=== PATIENT | male | born 2000 | race Two or more races ===

== ENCOUNTER 2024-01-31 21:03 | Emergency (ER) | payer MEDICAID ==
[~2024-01-31] VITALS: Ht 322.6 cm; Wt 65.9 kg
[2024-01-31] MEDS ORDERED: DIVA125T31 PO (21:14)
[2024-01-31] MEDS ORDERED: QUET-1 PO (21:14)
[2024-01-31] MEDS ORDERED: PROP10TA10 PO (21:14)
[2024-01-31] MEDS: LORazepam 2 mg/ml vial IM ONE (22:04)
[2024-01-31] MEDS: haloperidol lactate 5mg/ml inj IM ONE (22:05)
[2024-01-31] MEDS: diphenhydrAMINE 50 mg/ml inj IM ONE (22:05)
[2024-01-31 22:49] LABS: BASOPHILS # (AUTO) 0.2 X10'3 (0-0.2); BASOPHILS % (AUTO) 1.4 % (0-1); EOSINOPHILS # (AUTO) 0.1 X10'3 (0-0.9); EOSINOPHILS % (AUTO) 0.6 % (0-6); HEMATOCRIT 40.5 % (42.0-52.0); HEMOGLOBIN 13.7 g/dl (14.0-17.9); LYMPHOCYTES # (AUTO) 0.7 X10'3 (1.1-4.8); LYMPHOCYTES % (AUTO) 4.2 % (21-51); MEAN CORPUSCULAR HEMOGLOBIN 29.8 PG (27.0-31.0); MEAN CORPUSCULAR HGB CONC 33.7 g/dL (33.0-36.5); MEAN CORPUSCULAR VOLUME 88.2 FL (78-98); MEAN PLATELET VOLUME 8.2 FL (7.4-10.4); MONOCYTES # (AUTO) 0.9 X10'3 (0-0.9); MONOCYTES % (AUTO) 5.3 % (2-12); NEUTROPHILS # (AUTO) 14.3 X10'3 (1.8-7.7); NEUTROPHILS % (AUTO) 88.5 % (42-75); PLATELET COUNT 259 X10'3 (140-440); RED BLOOD COUNT 4.59 X10'6 (4.70-6.10); RED CELL DISTRIBUTION WIDTH 14.9 % (11.5-14.5); WHITE BLOOD COUNT 16.1 X10'3 (4.5-11.0)
[2024-01-31 22:55] LABS: ALANINE AMINOTRANSFERASE 18 U/L (12-78); ALBUMIN 4.4 G/DL (3.4-5.0); ALBUMIN/GLOBULIN RATIO 1.5 (1.1-1.5); ALKALINE PHOSPHATASE 75 IU/L (46-116); ANION GAP 13 (8-16); ASPARTATE AMINO TRANSFERASE 15 U/L (10-37); BILIRUBIN,TOTAL 0.4 MG/DL (0.1-1.0); BLOOD UREA NITROGEN 12 MG/DL (7-18); BUN/CREATININE RATIO 9.8 (10.0-20.0); CALCIUM 9.2 MG/DL (8.5-10.1); CHLORIDE 104 MMOL/L (99-107); CREATININE 1.22 MG/DL (0.60-1.10); GLUCOSE 125 MG/DL (70-104); POTASSIUM 3.5 MMOL/L (3.5-5.1); SALICYLATE 4.5 MG/DL (4.0-20.0); SODIUM 143 MMOL/L (135-145); TOTAL CARBON DIOXIDE 25.9 MMOL/L (24-32); TOTAL PROTEIN 7.4 G/DL (6.4-8.2); eCRCL 88 ML/MIN; eGFR 74 ML/MIN
[2024-01-31 22:59] LABS: ACETAMINOPHEN < 2.0 UG/ML (10-30); ETHANOL < 10 MG/DL (<10)
[2024-02-01] MEDS: divalproex sod 125mg tablet.DR PO SCH (00:53)
[2024-02-01] MEDS: quetiapine 100mg tablet PO SCH (00:54)
[2024-02-01] MEDS: propranolol 10mg tablet PO SCH (00:54)
[2024-02-01 01:03] LABS: THYROID STIMULATING HORMONE 0.65 ulU/ml (0.34-4.50); VALPROATE 6 UG/ML (50-100)
[2024-02-01 03:01] LABS: FREE T4 (FREE THYROXINE) 1.33 NG/DL (0.73-1.40)
[2024-02-01 16:35] LABS: BILIRUBIN,URINE SMALL (Neg); CLARITY,URINE CLOUDY (Clear); COLOR,URINE AMBER (Yellow); GLUCOSE, URINE NEGATIVE (Neg); KETONES,URINE NEGATIVE (Neg); LEUKOCYTE ESTERASE ,URINE NEGATIVE (Neg); NITRITES, URINE NEGATIVE (Neg); OCCULT BLOOD,URINE NEGATIVE (Neg); PROTEIN,URINE 30 mg/dl (Neg); UROBILINOGEN,URINE 0.2 E.U/dL (0.2-1.0)
[2024-02-01 16:38] LABS: UA COLLECTION TYPE NON-SPECIFIED
[2024-02-01 16:44] LABS: RBC,URINE 0-2 /HPF (0-2)
[2024-02-01 16:45] LABS: BACTERIA,URINE FEW /HPF (Neg); MUCUS STRANDS MANY /LPF (Neg); SQUAMOUS EPITHELIAL CELL,UR NONE SEEN /LPF (FEW)
[2024-02-01 16:46] LABS: HYALINE CASTS 0-3 /LPF (NEGATIVE)
[2024-02-01 16:48] LABS: URINE AMPHETAMINE SCREEN NEGATIVE (Neg); URINE BARBITUATE SCREEN NEGATIVE (Neg); URINE BENZODIAZEPINES SCREEN NEGATIVE (Neg); URINE CANNABINOID SCREEN POSITIVE (Neg); URINE COCAINE SCREEN NEGATIVE (Neg); URINE METHADONE SCREEN NEGATIVE (Neg); URINE OPIATE SCREEN NEGATIVE (Neg); URINE PHENCYCLIDINE SCREEN NEGATIVE (Neg)
[2024-02-01] MEDS ORDERED: LEVE500T PO (16:59)
[2024-02-01] MEDS: levetiracetam 250mg tablet PO SCH (20:32)
[2024-02-02] MEDS: diphenhydrAMINE 50 mg/ml inj IM ONE (11:15)
[2024-02-02] MEDS: LORazepam 2 mg/ml vial IM ONE (11:15)
[2024-02-02] MEDS: haloperidol lactate 5mg/ml inj IM ONE (11:25)
[2024-02-02] MEDS ORDERED: CefTRIAXone 500MG IM Kit w/LIDOcaine IM ONE (15:50)
[2024-02-02] MEDS: CefTRIAXone 250MG IM Kit w/LIDOcaine IM ONE (16:13)
[2024-02-02] MEDS: azithromycin 250mg tablet PO ONE (16:14)
[2024-02-02] MEDS: cephalexin 500mg capsule PO SCH (16:14)
[2024-02-03] MEDS: diphenhydrAMINE 50 mg/ml inj IM ONE (11:25)
[2024-02-03] MEDS: haloperidol lactate 5mg/ml inj IM ONE (11:25)
[2024-02-03] MEDS: LORazepam 2 mg/ml vial IM ONE (11:25)
[2024-02-03] MEDS: NICOTINE POLACRILEX 2 MG LOZENGE BC PRN (18:59)
[2024-02-04 06:25] VITALS: BP 90/62; PULSE 53; TEMP 97.2; O2SAT 99
[2024-02-04 07:45] VITALS: RESP 18
== END 2024-02-04 13:30 ==
LOC: ER 21:04
DX: R45.850 Homicidal ideations (principal); Z20.822 Contact with and (suspected) exposure to COVID-19; F23 Brief psychotic disorder
CPT/HCPCS: 36415; 80053; 80164; 80305; 80320; 80329; 81001; 84439; 84443; 85025; 87088; 87491; 87591; 87811; 96372; 99285; J1200; J1630; J2060

== ENCOUNTER 2024-04-17 20:19 | Emergency (ER) | payer MEDICAID ==
[~2024-04-17] VITALS: Ht 167.6 cm; Wt 63.6 kg
[~2024-04-17 20:19] MED LIST: DIVA125T31 PO; LEVE500T PO; PROP10TA10 PO; QUET-1 PO
[2024-04-17 20:28] VITALS: BP 126/81; PULSE 115; O2SAT 96
[2024-04-17 21:22] LABS: BASOPHILS % (AUTO) 0.3 % (0-1); EOSINOPHILS % (AUTO) 0.4 % (0-6); HEMATOCRIT 42.3 % (42.0-52.0); HEMOGLOBIN 14.2 g/dl (14.0-17.9); LYMPHOCYTES # (AUTO) 0.8 X10'3 (1.1-4.8); LYMPHOCYTES % (AUTO) 8.6 % (21-51); MEAN CORPUSCULAR HEMOGLOBIN 29.9 PG (27.0-31.0); MEAN CORPUSCULAR HGB CONC 33.5 g/dL (33.0-36.5); MEAN CORPUSCULAR VOLUME 89.2 FL (78-98); MEAN PLATELET VOLUME 8.8 FL (7.4-10.4); MONOCYTES % (AUTO) 10.3 % (2-12); NEUTROPHILS # (AUTO) 7.7 X10'3 (1.8-7.7); NEUTROPHILS % (AUTO) 80.4 % (42-75); PLATELET COUNT 266 X10'3 (140-440); RED BLOOD COUNT 4.74 X10'6 (4.70-6.10); RED CELL DISTRIBUTION WIDTH 14.5 % (11.5-14.5); WHITE BLOOD COUNT 9.6 X10'3 (4.5-11.0)
[2024-04-17 21:30] LABS: ALBUMIN 4.4 G/DL (3.4-5.0); ANION GAP 9 (8-16); BLOOD UREA NITROGEN 15 MG/DL (7-18); BUN/CREATININE RATIO 13.2 (10.0-20.0); CALCIUM 9.3 MG/DL (8.5-10.1); CHLORIDE 103 MMOL/L (99-107); CREATININE 1.14 MG/DL (0.60-1.10); ETHANOL < 10 MG/DL (<10); GLUCOSE 140 MG/DL (70-104); POTASSIUM 3.3 MMOL/L (3.5-5.1); SODIUM 140 MMOL/L (135-145); eCRCL 91 ML/MIN; eGFR 80 ML/MIN
[2024-04-17 21:32] VITALS: RESP 14
[2024-04-17 21:33] LABS: ACETAMINOPHEN < 2.0 UG/ML (10-30)
[2024-04-17] MEDS ORDERED: SERT200C PO (22:11)
[2024-04-17] MEDS ORDERED: DIVA-81 PO (22:11)
[2024-04-17] MEDS ORDERED: RISP1TAB13 PO (22:11)
[2024-04-17] MEDS ORDERED: BENZ1TAB93 PO (22:11)
[2024-04-17] MEDS ORDERED: MELA1TAB28 PO (22:11)
[2024-04-17] MEDS ORDERED: SERT50TA PO (22:11)
[2024-04-17 22:19] LABS: URINE AMPHETAMINE SCREEN NEGATIVE (Neg); URINE BARBITUATE SCREEN NEGATIVE (Neg); URINE BENZODIAZEPINES SCREEN NEGATIVE (Neg); URINE CANNABINOID SCREEN POSITIVE (Neg); URINE COCAINE SCREEN NEGATIVE (Neg); URINE METHADONE SCREEN NEGATIVE (Neg); URINE PHENCYCLIDINE SCREEN NEGATIVE (Neg)
[2024-04-17 22:42] VITALS: TEMP 98.5
[2024-04-18] MEDS ORDERED: sertraline 50mg tablet PO SCH (08:00)
[2024-04-18] MEDS ORDERED: risperiDONE 0.5mg tablet PO SCH (08:00)
[2024-04-18] MEDS ORDERED: levetiracetam 250mg tablet PO SCH (08:00)
[2024-04-18] MEDS ORDERED: benztropine 1mg tablet PO SCH (08:00)
[2024-04-18] MEDS ORDERED: propranolol 10mg tablet PO SCH (08:00)
[2024-04-18] MEDS ORDERED: divalproex sod 250mg ER (24-hour) tablet PO SCH (08:00)
[2024-04-18] MEDS ORDERED: non-formulary drug (Melatonin/Pyridoxine HCl (B6) (Melatonin 3 mg Tablet) 1 TAB) PO SCH (21:00)
[2024-04-18] MEDS ORDERED: quetiapine 100mg tablet PO SCH (21:00)
== END 2024-04-17 22:46 | disposition home or self-care (01) ==
LOC: ER 20:19
DX: F20.9 Schizophrenia, unspecified (principal); Z20.822 Contact with and (suspected) exposure to COVID-19; Z88.5 Allergy status to narcotic agent; Z88.8 Allergy status to other drugs, medicaments and biological substances; Z79.1 Long term (current) use of non-steroidal anti-inflammatories (NSAID); Z79.899 Other long term (current) drug therapy
CPT/HCPCS: 36415; 80048; 80305; 80320; 80329; 85025; 87811; 99283